=== PATIENT | female | born 2000 | race Caucasian/White ===

== ENCOUNTER 2020-02-25 06:14 | Inpatient (IN) ==
[2020-02-25] MEDS ORDERED: Naloxone 0.4 MG/ML INJ IVP PRN (06:27)
[2020-02-25] MEDS ORDERED: Metoclopramide 10 MG/2 ML VIAL IVP PRN (06:27)
[2020-02-25] MEDS ORDERED: Famotidine 20 MG/2 ML VIAL IVP PRN (06:27)
[2020-02-25] MEDS ORDERED: *HR* FentaNYL (PF) 100 MCG/2 ML VIAL IVP PRN (06:27)
[2020-02-25] MEDS ORDERED: Ondansetron 4 MG/2 ML VIAL IVP PRN (06:27)
[2020-02-25] MEDS ORDERED: miSOPROStoL 25 MCG TABLET PO PRN (06:28)
[2020-02-25 07:01] LABS: Basophils % 0.2 %; Eosinophils # 0.2 K/mcL (0.0-0.6); Eosinophils % 1.3 %; Hematocrit 35.6 % (35.3-44.9); Hemoglobin 11.8 g/dL (11.5-15.4); Immature Granulocytes % 0.7 % (0-4); Lymphocytes # 2.2 K/mcL (0.6-4.6); Lymphocytes % 18.2 %; Mean Corpuscular HGB Conc 33.1 g/dL (31.6-35.5); Mean Corpuscular Hemoglobin 29.7 pg (28.0-33.3); Mean Corpuscular Volume 89.7 fL (83.0-100.0); Monocytes # 0.9 K/mcL (0.0-1.3); Monocytes % 7.2 %; Neutrophils # 8.6 K/mcL (1.6-8.9); Platelet Count 193 K/mcL (140-400); Red Blood Count 3.97 M/mcL (3.82-4.97); Red Cell Distribution Width 15.9 % (11.5-14.5); Segmented Neutrophils % 72.4 %; White Blood Count 11.9 K/mcL (4.3-11.1)
[2020-02-25 07:27] LABS: Amphetamine Screen,Urine Negative ng/mL (Cutoff=1000); Barbiturate Screen,Urine Negative ng/mL (Cutoff=200); Benzodiazepines Screen,Urine Negative ng/mL (Cutoff=200); Cannabinoid Screen,Urine Negative ng/mL (Cutoff = 50); Cocaine Screen,Urine Negative ng/mL (Cutoff= 300); Opiate Screen,Urine Negative ng/mL (Cutoff=300); Phencyclidine Screen,Urine Negative ng/mL (Cutoff=25)
[2020-02-25] MEDS: Ringers Solution, Lactated 1,000 ML IVC SCH ×2 (07:30→20:13)
[2020-02-25] MEDS ORDERED: EPHEDrine 50 MG/ML VIAL IVP PRN (08:01)
[2020-02-25] MEDS ORDERED: Oxytocin 20 units/ LR 1000 mL 20 UNIT/1,000 ML BAG IVC SCH (16:45)
[2020-02-25] MEDS: Epidural Premix (fent/bupiv) 110 ML EP SCH (17:42)
[2020-02-25] MEDS ORDERED: Ondansetron 4 MG/2 ML VIAL IVP STA (22:09)
[2020-02-25] MEDS ORDERED: *HR* FentaNYL (PF) 100 MCG/2 ML VIAL ONE (22:42)
[2020-02-25] MEDS ORDERED: Ropivacaine/PF 0.2% 20 ML VIAL ONE (22:42)
[2020-02-26] MEDS: Epidural Premix (fent/bupiv) 110 ML EP SCH
[2020-02-26] MEDS ORDERED: Sennosides 8.6 MG TABLET PO PRN (06:23)
[2020-02-26] MEDS ORDERED: Measles/Mumps/Rubella Vacc 0.5 ML VIAL SQ PRN (06:23)
[2020-02-26] MEDS ORDERED: Oxytocin 20 units/ LR 1000 mL 20 UNIT/1,000 ML BAG IVC ONE (06:23)
[2020-02-26] MEDS ORDERED: Benzocaine/Menthol 56 GM AEROSOL SPRAY TP PRN (06:23)
[2020-02-26] MEDS ORDERED: Oxytocin 20 units/ LR 1000 mL 20 UNIT/1,000 ML BAG IVC SCH (06:23)
[2020-02-26] MEDS ORDERED: Acetaminophen 325 MG TABLET PO PRN (06:23)
[2020-02-26] MEDS ORDERED: Rho Immune Globulin 1,500 UNIT SYRINGE IM PRN (06:23)
[2020-02-26] MEDS ORDERED: Lanolin 7 G OINT...G. TP PRN (06:23)
[2020-02-26] MEDS: Prenatal Vit/FA 1 EACH TABLET PO SCH (08:59)
[2020-02-26] MEDS: Ibuprofen 600 MG TABLET PO PRN (21:12)
[2020-02-27 05:00] LABS: Basophils % 0.2 %; Eosinophils # 0.2 K/mcL (0.0-0.6); Eosinophils % 1.5 %; Hematocrit 28.2 % (35.3-44.9); Immature Granulocytes % 0.8 % (0-4); Lymphocytes % 23.1 %; Mean Corpuscular Hemoglobin 30.2 pg (28.0-33.3); Mean Corpuscular Volume 91.6 fL (83.0-100.0); Mean Platelet Volume 11.2 fL (9.4-12.4); Monocytes # 0.8 K/mcL (0.0-1.3); Monocytes % 5.8 %; Neutrophils # 8.9 K/mcL (1.6-8.9); Platelet Count 160 K/mcL (140-400); Red Blood Count 3.08 M/mcL (3.82-4.97); Red Cell Distribution Width 16.4 % (11.5-14.5); Segmented Neutrophils % 68.6 %
[2020-02-27 05:05] LABS: Hemoglobin 9.3 g/dL (11.5-15.4)
[2020-02-27] MEDS: Prenatal Vit/FA 1 EACH TABLET PO SCH (07:50)
[2020-02-27] MEDS: Ibuprofen 600 MG TABLET PO PRN (07:50)
[2020-02-27 07:56] VITALS: BP 90/60
== END 2020-02-27 11:38 | disposition home or self-care (01) | DRG 560 ==
LOC: 1NENULAB 06:14 → 1NENUOBS 02-26 07:39
PROVIDERS: ADMIT Advanced Practice Midwife; ATTEND Advanced Practice Midwife

== ENCOUNTER → 2021-03-11 01:13 | Observation (INO) ==
[2021-03-10 23:12] LABS: Bacteria,Urine Few per hpf (None-Few); Bilirubin,Urine Negative (Negative); Blood,Urine Negative (Negative); Clarity,Urine Turbid (Clear); Color,Urine Yellow (Yellow); Glucose,Urine (UA) Normal (Normal); Ketones,Urine Negative (Negative); Leukocyte Esterase,Urine Large (Negative); Mucus,Urine Few per lpf (None-Few); Nitrite,Urine Negative (Negative); Protein,Urine 30 mg/dL (Neg-Trace); Specific Gravity,Urine 1.017 (1.010-1.025); Squamous Epithelial Cell,Urine Moderate per hpf (None-Few); Urobilinogen,Urine Normal (Normal); WBC,Urine 30-50 per hpf (0-3)
[2021-03-11 00:14] LABS: Basophils % 0.2 %; Eosinophils # 0.1 K/mcL (0.0-0.6); Eosinophils % 0.7 %; Hematocrit 27.2 % (35.3-44.9); Hemoglobin 8.1 g/dL (11.5-15.4); Immature Granulocytes % 1.1 % (0-4); Lymphocytes # 1.8 K/mcL (0.6-4.6); Mean Corpuscular HGB Conc 29.8 g/dL (31.6-35.5); Mean Corpuscular Hemoglobin 22.4 pg (28.0-33.3); Mean Corpuscular Volume 75.3 fL (83.0-100.0); Mean Platelet Volume 11.5 fL (9.4-12.4); Monocytes # 0.9 K/mcL (0.0-1.3); Monocytes % 6.5 %; Neutrophils # 10.8 K/mcL (1.6-8.9); Nucleated Red Blood Cells 0.1 /100 WBC (0); Platelet Count 223 K/mcL (140-400); Red Blood Count 3.61 M/mcL (3.82-4.97); Segmented Neutrophils % 78.5 %; White Blood Count 13.8 K/mcL (4.3-11.1)
[~2021-03-11 01:13] MED LIST: Ringers Solution, Lactated 1,000 ML IVC ONE; Ringers Solution, Lactated 1,000 ML ONE
== END | disposition home or self-care (01) ==
LOC: 1NENULAB
PROVIDERS: ADMIT Registered Nurse; ATTEND Registered Nurse

== ENCOUNTER 2021-03-12 01:45 | Inpatient (IN) ==
[~2021-03-12 01:45] MED LIST changes: +Famotidine 20 MG TABLET PO SCH; +Famotidine 20 MG TABLET PO STA; +Famotidine 20 MG/2 ML VIAL IVP PRN; +Metoclopramide 10 MG/2 ML VIAL IVP PRN; +Naloxone 0.4 MG/ML INJ IVP PRN; +Ondansetron 4 MG/2 ML VIAL IVP PRN; +Oxytocin 20 units/ LR 1000 mL 20 UNIT/1,000 ML BAG IVC SCH
[2021-03-12 01:54] LABS: Candida DNA Not Detected (Not Detect); Gardnerella DNA Not Detected (Not Detect); Trichomonas DNA Not Detected (Not Detect)
[2021-03-12] MEDS ORDERED: EPHEDrine 50 MG/ML VIAL IVP PRN (02:07)
[2021-03-12] MEDS ORDERED: Epidural Premix (fent/bupiv) 110 ML EP SCH (02:15)
[2021-03-12 02:27] LABS: Basophils % 0.1 %; Eosinophils % 0.1 %; Hematocrit 25.7 % (35.3-44.9); Hemoglobin 7.8 g/dL (11.5-15.4); Immature Granulocytes % 0.5 % (0-4); Lymphocytes % 5.1 %; Mean Corpuscular HGB Conc 30.4 g/dL (31.6-35.5); Mean Corpuscular Hemoglobin 22.7 pg (28.0-33.3); Mean Corpuscular Volume 74.7 fL (83.0-100.0); Mean Platelet Volume 11.9 fL (9.4-12.4); Monocytes # 1.2 K/mcL (0.0-1.3); Monocytes % 5.9 %; Neutrophils # 17.2 K/mcL (1.6-8.9); Platelet Count 193 K/mcL (140-400); Red Blood Count 3.44 M/mcL (3.82-4.97); Segmented Neutrophils % 88.3 %; White Blood Count 19.5 K/mcL (4.3-11.1)
[2021-03-12 02:55] LABS: Amphetamine Screen,Urine Negative ng/mL (Cutoff=1000); Barbiturate Screen,Urine Negative ng/mL (Cutoff=200); Benzodiazepines Screen,Urine Negative ng/mL (Cutoff=200); Cannabinoid Screen,Urine Negative ng/mL (Cutoff = 50); Cocaine Screen,Urine Negative ng/mL (Cutoff= 300); Opiate Screen,Urine Negative ng/mL (Cutoff=300); Phencyclidine Screen,Urine Negative ng/mL (Cutoff=25)
[2021-03-12 03:01] LABS: Influenza A PCR Negative (Negative); Influenza B PCR Negative (Negative); Resp. Syncytial Virus PCR Negative (Negative); SARS-CoV-2 by PCR (In House) Negative (Negative)
[2021-03-12] MEDS ORDERED: Ringers Solution, Lactated 1,000 ML ONE (04:25)
[2021-03-12] MEDS ORDERED: Ringers Solution, Lactated 1,000 ML IVC SCH (08:00)
[2021-03-12] MEDS: valACYclovir 500 MG TABLET PO SCH ×2 (09:25→21:45)
[2021-03-12] MEDS ORDERED: miSOPROStoL 100 MCG TABLET RC ONE (12:02)
[2021-03-12] MEDS ORDERED: Methylergonovine 0.2 MG/ML AMPUL IM ONE ×2 (12:02→12:14)
[2021-03-12] MEDS ORDERED: miSOPROStoL 100 MCG TABLET RC STA (12:19)
[2021-03-12] MEDS ORDERED: Benzocaine/Menthol 56 GM AEROSOL SPRAY TP PRN (12:37)
[2021-03-12] MEDS ORDERED: Oxytocin 20 units/ LR 1000 mL 20 UNIT/1,000 ML BAG IVC ONE (12:37)
[2021-03-12] MEDS ORDERED: Lanolin 7 G OINT...G. TP PRN (12:37)
[2021-03-12] MEDS ORDERED: Ondansetron ODT 4 MG TAB.RAPDIS SL PRN (12:37)
[2021-03-12] MEDS ORDERED: Oxytocin 20 units/ LR 1000 mL 20 UNIT/1,000 ML BAG IVC SCH (12:45)
[2021-03-12] MEDS: Ibuprofen 600 MG TABLET PO SCH ×2 (15:30→21:45)
[2021-03-12] MEDS: Acetaminophen 325 MG TABLET PO SCH (18:34)
[2021-03-13] MEDS: Ibuprofen 600 MG TABLET PO SCH (04:09)
[2021-03-13] MEDS: Acetaminophen 325 MG TABLET PO SCH ×2 (04:09→10:31)
[2021-03-13 05:25] LABS: Basophils % 0.2 %; Eosinophils # 0.1 K/mcL (0.0-0.6); Eosinophils % 0.7 %; Hematocrit 23.1 % (35.3-44.9); Immature Granulocytes % 0.8 % (0-4); Lymphocytes # 2.6 K/mcL (0.6-4.6); Lymphocytes % 13.7 %; Mean Corpuscular HGB Conc 30.3 g/dL (31.6-35.5); Mean Corpuscular Hemoglobin 22.5 pg (28.0-33.3); Mean Corpuscular Volume 74.3 fL (83.0-100.0); Mean Platelet Volume 11.8 fL (9.4-12.4); Neutrophils # 15.2 K/mcL (1.6-8.9); Platelet Count 187 K/mcL (140-400); Red Blood Count 3.11 M/mcL (3.82-4.97); Red Cell Distribution Width 18.4 % (11.5-14.5); Segmented Neutrophils % 79.6 %
[2021-03-13 07:30] VITALS: BP 94/55; PULSE 88; TEMP 98.1; O2SAT 96
[2021-03-13] MEDS ORDERED: Prenatal Vit/FA 1 EACH TABLET PO SCH (09:00)
[2021-03-13] MEDS: valACYclovir 500 MG TABLET PO SCH (10:31)
== END 2021-03-13 12:03 | disposition home or self-care (01) | DRG 560 ==
LOC: 1NENULAB → 1NENUOBS 14:55
PROVIDERS: ADMIT Advanced Practice Midwife; ATTEND Advanced Practice Midwife